=== PATIENT | female | born 1955 | race Hispanic/Latino ===

== ENCOUNTER → 2018-01-26 | Day surgery (SDC) | payer BC ==
[~2018-01-26] MED LIST: CALCIUM PO; FENTANYL CITRATE/PF 100MCG/2 ML INJ ONE; HYOSCYAMINE SULFATE 0.5 MG/ML AMP ONE; LIDOCAINE HCL 2% LOCAL INJ 5 ML SDV VIAL INJ ONE; LORATADINE10 MG PO; MIDAZOLAM HCL 2 MG/2 ML VIAL ONE; NAPROXEN250 MG PO; PROPOFOL IV EMULSION 10 MG/ML 50 ML VIAL ONE; VIT D PO
--- NOTE | 2018-01-26 15:03 | Operative Report ---
DATE OF PROCEDURE: January 26, 2018 REFERRING PHYSICIAN: Dr. Carlton Andujar PROCEDURE PERFORMED: Colonoscopy and polypectomy. INDICATIONS FOR COLONOSCOPY: Colorectal cancer screening and personal history of colon polyps. MEDICATION: Patient was done under MAC. Please see anesthesiologist's note. PROCEDURE: With the patient in the left lateral decubitus position, the flexible fiberoptic Olympus colonoscope was inserted into the rectum with ease and advanced all the way to the cecum. It was then withdrawn slowly. Mucosa overlying the cecum and ascending appeared to be within normal limits. One polyp was snared from the transverse colon. Diverticular disease was noted scattered in the left colon and more prominent in the sigmoid colon. Two polyps were hot biopsied from the sigmoid colon. The scope was then retroflexed into the distal rectum and the area around the dentate line appeared to be within normal limits. The scope was then straightened out. It was subsequently withdrawn. Patient tolerated the procedure well. IMPRESSION 1. Transverse colon polyp, snared. 2. Diverticulosis. 3. Sigmoid colon polyps times 2, hot biopsied. PLAN: Follow up histology. Initiate high-fiber and low-fat diet. Initiate a fiber supplement. Patient might benefit from a followup colonoscopy in 3 years. Job#: [id number] RI cc:FIORDALIZA ANDUJAR DO
== END | disposition home or self-care (01) ==
LOC: OR 12:37
PROVIDERS: ATTEND Internal Medicine Gastroenterology
DX: Z12.11 Encounter for screening for malignant neoplasm of colon (principal); D12.3 Benign neoplasm of transverse colon; K57.30 Diverticulosis of large intestine without perforation or abscess without bleeding; J45.909 Unspecified asthma, uncomplicated; K76.0 Fatty (change of) liver, not elsewhere classified; R00.1 Bradycardia, unspecified; Z01.810 Encounter for preprocedural cardiovascular examination; Z91.041 Radiographic dye allergy status; Z68.36 Body mass index [BMI] 36.0-36.9, adult
CPT/HCPCS: 45384; 45385; 93005; J1980; J2001; J2250; 45378